=== PATIENT | male | born 1940 ===

== ENCOUNTER → 2019-11-02 | Outpatient (CLI) | payer MEDICARE ==
--- NOTE | 2019-11-02 14:45 | XR ---
EXAMINATION TYPE: XR nasal bone DATE OF EXAM: 11/02/2019 COMPARISON: None HISTORY: Pain TECHNIQUE: Three-view nasal bones FINDINGS: A nondisplaced fracture of the distal nasal bone may be present. No additional areas suspic ious for fracture is evident. Paranasal sinuses appear clear. Right septal deviation is noted. IMPRESSION: 1. Nondisplaced distal nasal bone fracture
== END | disposition home or self-care (01) ==
LOC: RADXRMAIN 13:26
PROVIDERS: ATTEND Family Medicine
DX: S02.2XXA Fracture of nasal bones, initial encounter for closed fracture (principal)
CPT/HCPCS: 70160

== ENCOUNTER → 2020-06-20 | Outpatient (CLI) | payer MEDICARE ==
--- NOTE | 2020-06-20 11:08 | CT ---
EXAMINATION TYPE: CT brain wo con DATE OF EXAM: 06/20/2020 COMPARISON: None HISTORY: Head pain right side CT DLP: 1189 mGycm Automated exposure control for dose reduction was used. FINDINGS: There is mild to moderate generalized degenerative change of the greater frontal lobe component. Low- attenuation in the white matter is nonspecific. There is mild prominence of the right ICA. Prominent cisterna magna is seen. No midline shift or mass effect. Craniocervical junction maintained. Partially empty sella turcica noted. Calvarium intact. IMPRESSION: Degenerative and nonspecific white matter changes most typical of remote white matter ischemia. Howev er, there is prominence of the right ICA cavernous segment recommend MRI MRA to include the [place] to rule out small aneurysm
== END | disposition home or self-care (01) ==
LOC: RADCTMAIN 10:23
PROVIDERS: ATTEND Family Medicine
DX: R90.82 White matter disease, unspecified (principal); I67.82 Cerebral ischemia
CPT/HCPCS: 70450

== ENCOUNTER → 2020-07-04 | Outpatient (CLI) | payer MEDICARE ==
--- NOTE | 2020-07-04 14:21 | MR ---
EXAMINATION TYPE: MR angio head wo con DATE OF EXAM: 07/04/2020 COMPARISON: CT brain June 20, 2020 HISTORY: Abnormal CT, Pain in head TECHNIQUE: Time of flight images focusing on the [place] were performed without contrast.. 2-D and 3-D postprocessing imaging is performed. FINDINGS: Codominant vertebrobasilar system. Vertebral arteries are patent to basilar junction. Hypop lastic bilateral posterior communicating arteries. No significant focal stenosis or aneurysmal change is identified in the posterior circulation. Images of the anterior circulation show small caliber but patent anterior communicating artery image 106. No significant focal stenosis or aneurysmal change identified, suboptimal evaluation of entire a nterior cerebral artery extending outside field of view. Distal internal carotid arteries show modera te atherosclerotic change bilaterally and some tortuous course, slightly asymmetric 5.1 mm aneurysmal prominence image 68 believed to correspond to area of of concern on recent CT on axial image 8. The internal carotid artery measures 4.5 mm in diameter just proximal to this image 64 for reference and 3.0 cm in diameter just distal to this image 74. 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
== END | disposition home or self-care (01) ==
LOC: RADMRIMAIN 13:20
PROVIDERS: ATTEND Family Medicine
DX: I72.0 Aneurysm of carotid artery (principal)
CPT/HCPCS: 70544

== ENCOUNTER 2023-04-21 20:30 | Inpatient (IN) | payer MEDICARE ==
--- NOTE | 2023-04-21 20:53 | ED ---
Allergic Reaction HPI - General Stated complaint: Allergic Reaction Time Seen by Provider: 04/21/23 20:39 Source: RN notes reviewed, old records reviewed, Caregiver Mode of arrival: EMS Limitations: no limitations - History of Present Illness Initial Comments: This is a 83 year-old male to the emergency department for evaluation today. She presents today for evaluation of fever weakness not feeling well. Feels like his heart is racing and like he may pass out. No cough congestion shortness of breath nausea vomiting or diarrhea patient's found of fever and tachycardia here in the emergency department. Persistent weakness and presents with likely does help provide history. Patient's been acting weak and not himself of the course of the day and he himself has no complaints aside from this MD Complaint: allergic reaction -: days(s) Symptoms: rash, facial swelling Severity: mild Treatment Prior to Arrival: benadryl Previous Allergy History: none - Related Data Home Medications Medication Instructions Recorded Confirmed Atorvastatin [Lipitor] 20 mg PO HS 04/21/23 04/21/23 Losartan Potassium 50 mg PO HS 04/21/23 04/21/23 Lutein 20 mg PO HS 04/21/23 04/21/23 Previous Rx's Medication Instructions Recorded cefUROXime axetiL [Ceftin] 500 mg PO BID 7 Days #14 tab 04/24/23 Allergies Allergy/AdvReac Type Severity Reaction Status Date / Time No Known Allergies Allergy Verified 04/21/23 22:53 Review of Systems ROS Statement: Those systems with pertinent positive or pertinent negative responses have been documented in the HPI. ROS Other: All systems not noted in ROS Statement are negative. Past Medical History Past Medical History: No Reported History History of Any Multi-Drug Resistant Organisms: None Reported Past Surgical History: No Surgical Hx Reported Additional Past Surgical History / Comment(s): colonoscopy Past Anesthesia/Blood Transfusion Reactions: No Reported Reaction Past Psychological History: No Psychological Hx Reported Past Alcohol Use History: Occasional Past Drug Use History: None Reported - Past Family History Father Family Medical History: Cancer Additional Family Medical History / Comment(s): melanoma General Exam General appearance: alert, in no apparent distress, anxious Head exam: Present: atraumatic, normocephalic, normal inspection Eye exam: Present: normal appearance, PERRL, EOMI. Absent: scleral icterus, conjunctival injection, periorbital swelling ENT exam: Present: normal exam, mucous membranes moist Neck exam: Present: normal inspection. Absent: tenderness, meningismus, lymphadenopathy Respiratory exam: Present: normal lung sounds bilaterally. Absent: respiratory distress, wheezes, rales, rhonchi, stridor Cardiovascular Exam: Present: regular rate, normal rhythm, normal heart sounds. Absent: systolic murmur, diastolic murmur, rubs, gallop, clicks GI/Abdominal exam: Present: soft, normal bowel sounds. Absent: distended, tenderness, guarding, rebound, rigid Extremities exam: Present: normal inspection, full ROM, normal capillary refill. Absent: tenderness, pedal edema, joint swelling, calf tenderness Back exam: Present: normal inspection Neurological exam: Present: alert, oriented X3, CN II-XII intact Psychiatric exam: Present: normal affect, normal mood Skin exam: Present: warm, dry, intact, normal color. Absent: rash Course Vital Signs 04/21/23 04/21/23 04/21/23 20:46 20:56 22:54 Temperature 101.5 F H 100.2 F H Pulse Rate 132 H 116 H Pulse Rate [ Left Pulse Oximetery] Respiratory 18 24 18 Rate Blood Pressure 144/71 117/77 Blood Pressure [Left Arm Supine] O2 Sat by Pulse 89 L 97 Oximetry 04/21/23 04/22/23 04/22/23 23:44 00:46 05:13 Temperature 98.2 F 101.2 F H 98.8 F Pulse Rate 75 Pulse Rate [ Left Pulse Oximetery] Respiratory 18 Rate Blood Pressure 90/47 Blood Pressure [Left Arm Supine] O2 Sat by Pulse 95 Oximetry 04/22/23 04/22/23 04/22/23 06:37 07:05 07:57 Temperature 98.1 F Pulse Rate 77 75 84 Pulse Rate [ Left Pulse Oximetery] Respiratory 18 16 16 Rate Blood Pressure 86/59 93/54 119/69 Blood Pressure [Left Arm Supine] O2 Sat by Pulse 96 93 L 95 Oximetry 04/22/23 04/22/23 04/22/23 11:36 14:00 15:27 Temperature 98.9 F 99.1 F Pulse Rate 82 Pulse Rate [ 85 85 Left Pulse Oximetery] Respiratory 18 17 17 Rate Blood Pressure 103/65 Blood Pressure 125/58 [Left Arm Supine] O2 Sat by Pulse 90 L 95 Oximetry 1204/22/23 04/23/23 20:00 23:02 01:22 Temperature 100.6 F H 99.9 F H Pulse Rate Pulse Rate [ 88 93 93 Left Pulse Oximetery] Respiratory 18 18 18 Rate Blood Pressure Blood Pressure 132/69 112/64 [Left Arm Supine] O2 Sat by Pulse 92 L 92 L Oximetry 04/23/23 04/23/23 04/23/23 04:00 04:05 08:00 Temperature 99.1 F Pulse Rate Pulse Rate [ 90 83 Left Pulse Oximetery] Respiratory 18 18 18 Rate Blood Pressure Blood Pressure 109/54 133/65 [Left Arm Supine] O2 Sat by Pulse 88 L 93 L 93 L Oximetry 04/23/23 04/23/23 04/23/23 12:00 14:00 16:00 Temperature Pulse Rate Pulse Rate [ 80 80 79 Left Pulse Oximetery] Respiratory 18 Rate Blood Pressure Blood Pressure 132/67 [Left Arm Supine] O2 Sat by Pulse 93 L 95 Oximetry - Reevaluation(s) Reevaluation #1: 04/21/23 23:27 Medical record is reviewed Reevaluation #2: 04/21/23 23:28 Patient symptoms are mildly improving with fever control Reevaluation #3: 04/21/23 23:28 Patient informed of results Reevaluation #4: 04/21/23 23:28 Was pt. sent in by a medical professional or institution ([facility], [employer], urgent care, hospital, or [facility]...) When possible be specific @ -no Did you speak to anyone other than the patient for history (EMS, parent, family, police, friend...)? What history was obtained from this source @ -no Did you review nursing and triage notes (agree or disagree)? Why? @ -agree Are old charts reviewed (outside hosp., previous admission, EMS record, old EKG, old radiological studies, urgent care reports/EKG's, [facility] records)? Report findings @ -yes Differential Diagnosis (chest pain, altered mental status, abdominal pain women, abdominal pain men, vaginal bleeding, weakness, fever, dyspnea, syncope, headache, dizziness, GI bleed, back pain, seizure, CVA, palpatations, mental health, musculoskeletal)? @ -prior EKG interpreted by me (3pts min.). @ -yes X-rays interpreted by me (1pt min.). @ -yes negative for acute disease CT interpreted by me (1pt min.). @ -no U/S interpreted by me (1pt. min.). @ -no What testing was considered but not performed or refused? (CT, X-rays, U/S, labs)? Why? @ -none What meds were considered but not given or refused? Why? @ -none Did you discuss the management of the patient with other professionals (pro fessionals i.e. , PA, SETTER MACHINE, lab, RT, psych nurse, social work lecturer, lumber loader, teacher, civil preparedness training officer, case monitor)? Give summary @ -no Was smoking cessation discussed for >3mins.? @ -no Was critical care preformed (if so, how long)? @ -no Were there social determinants of health that impacted care today? How? (Homelessness, low income, unemployed, alcoholism, drug addiction, transportation, low edu. Level, literacy, decrease access to med. care, longterm, rehab)? @ -none Was there de-escalation of care discussed even if they declined (Discuss DNR or withdrawal of care, Hospice)? DNR status @ -no What co-morbidities impacted this encounter? (DM, HTN, Smoking, COPD, CAD, Cancer, CVA, ARF, Chemo, Hep., AIDS, mental health diagnosis, sleep apnea, morbid obesity)? @ -none Was patient admitted / discharged? Hospital course, mention meds given and route, prescriptions, significant lab abnormalities, going to OR and other pertinent info. @ - 83 male to the emergency department for evaluation to the emergency department to the emergency department for evaluation of fever weakness not feeling well. Patient did originally think he was having ALLERGIC reaction secondary to ration his abdomen but is found to have significant fever with likely underlying infection and patient symptoms are from illness Patient will be admitted for IV antibiotics and hydration status Admitted Undiagnosed new problem with uncertain prognosis? @ -no Drug Therapy requiring intensive monitoring for toxicity (Heparin, Nitro, Insulin, Cardizem)? @ -no Were any procedures done? @ -no Diagnosis/symptom? @ -Febrile illness, fever, sepsis Acute, or Chronic, or Acute on Chronic? @ -Acute Uncomplicated (without systemic symptoms) or Complicated (systemic symptoms)? @ -Complicated Side effects of treatment? @ -no Exacerbation, Progression, or Severe Exacerbation? @ -exacerbation Poses a threat to life or bodily function? How? (Chest pain, [place], [place], pneumonia, PE, COPD, DKA, ARF, appy, cholecystitis, CVA, Diverticulitis, Homicidal, Suicidal, threat to staff... and all critical care pts) @ -yes with significant extreme of age and fever with illness Reevaluation #5: 04/21/23 23:28 Differential Fever: Pneumonia, viral URI, endocarditis, myocarditis, pericarditis, otitis, sinusitis, peritonsillar Abscess, retropharyngeal Abscess, epiglottitis, peritonitis, appendicitis, [place] cystitis, diverticulitis, hepatitis, colitis, UTI, PID, TOA, pyelonephritis, prostatitis, epididymitis, meningitis, encephalitis, pulmonary embolism, CVA, thyroid storm, pancreatitis, adrenal crisis, cavernous sinus thrombosis, this is not meant to be an all-inclusive list. - Consultations Consultation #1: Spoke with [facility] who agree to admit this patient Medical Decision Making - Medical Decision Making 83 male to the emergency department for evaluation to the emergency department to the emergency department for evaluation of fever weakness not feeling well. Patient did originally think he was having ALLERGIC reaction secondary to ration his abdomen but is found to have significant fever with likely underlying infection and patient symptoms are from illness Patient will be admitted for IV antibiotics and hydration status - Lab Data Result diagrams: 04/23/23 07:10 04/23/23 07:10 Lab Results 04/21/23 04/21/23 04/21/23 Range/Units 21:51 21:51 21:51 WBC 4.7 (3.8-10.6) k/uL RBC 4.21 L (4.30-5.90) m/uL Hgb 13.5 (13.0-17.5) gm/dL Hct 40.2 (39.0-53.0) % MCV 95.5 (80.0-100.0) fL MCH 32.1 (25.0-35.0) pg MCHC 33.6 (31.0-37.0) g/dL RDW 12.9 (11.5-15.5) % Plt Count 205 (150-450) k/uL MPV 7.4 Neutrophils % Not Reportable Neutrophils % (Manual) 87 % Band Neuts % (Manual) 7 % Lymphocytes % Not Reportable Lymphocytes % (Manual) 6 % Monocytes % Not Reportable Eosinophils % Not Reportable Basophils % Not Reportable Neutrophils # Not Reportable Neutrophils # (Manual) 4.40 (1.3-7.7) k/uL Lymphocytes # Not Reportable Lymphocytes # (Manual) 0.28 L (1.0-4.8) k/uL Monocytes # Not Reportable Eosinophils # Not Reportable Basophils # Not Reportable Nucleated RBCs 0 (0-0) /100 WBC Manual Slide Review Performed RBC Morphology Normal Sodium 140 (137-145) mmol/L Potassium 4.1 (3.5-5.1) mmol/L Chloride 106 (98-107) mmol/L Carbon Dioxide 18 L (22-30) mmol/L Anion Gap 16 mmol/L BUN 24 H (9-20) mg/dL Creatinine 1.06 (0.66-1.25) mg/dL Est GFR (CKD-EPI)AfAm 75 (>60 ml/min/1.73 sqM) Est GFR (CKD-EPI)NonAf 65 (>60 ml/min/1.73 sqM) Glucose 108 H (74-99) mg/dL Lactic Ac Sepsis Rflx Plasma Lactic Acid [place] 3.6 H* (0.7-2.0) mmol/L Calcium 9.1 (8.4-10.2) mg/dL Phosphorus 1.9 L (2.5-4.5) mg/dL Magnesium 1.6 (1.6-2.3) mg/dL Total Bilirubin 0.4 (0.2-1.3) mg/dL AST 35 (17-59) U/L ALT 21 (4-49) U/L Alkaline Phosphatase 90 (38-126) U/L Troponin I (0.000-0.034) ng/mL C-Reactive Protein <0.5 (<1.0) mg/dL Total Protein 6.8 (6.3-8.2) g/dL Albumin 3.9 (3.5-5.0) g/dL Urine Color Urine Appearance (Clear) Urine pH (5.0-8.0) Ur Specific [place] (1.001-1.035) Urine Protein (Negative) Urine Glucose (UA) (Negative) Urine Ketones (Negative) Urine Blood (Negative) Urine Nitrite (Negative) Urine Bilirubin (Negative) Urine Urobilinogen (<2.0) mg/dL Ur Leukocyte Esterase (Negative) Urine RBC (0-5) /hpf Urine WBC (0-5) /hpf Ur Squamous Epith Cells (0-4) /hpf Urine Mucus (None) /hpf Influenza Type A (PCR) (Not Detectd) Influenza Type B (PCR) (Not Detectd) RSV (PCR) (Not Detectd) SARS-CoV-2 (PCR) (Not Detectd) 04/21/23 04/21/23 04/21/23 Range/Units 21:51 21:51 22:30 WBC (3.8-10.6) k/uL RBC (4.30-5.90) m/uL Hgb (13.0-17.5) gm/dL Hct (39.0-53.0) % MCV (80.0-100.0) fL MCH (25.0-35.0) pg MCHC (31.0-37.0) g/dL RDW (11.5-15.5) % Plt Count (150-450) k/uL MPV Neutrophils % Neutrophils % (Manual) % Band Neuts % (Manual) % Lymphocytes % Lymphocytes % (Manual) % Monocytes % Eosinophils % Basophils % Neutrophils # Neutrophils # (Manual) (1.3-7.7) k/uL Lymphocytes # Lymphocytes # (Manual) (1.0-4.8) k/uL Monocytes # Eosinophils # Basophils # Nucleated RBCs (0-0) /100 WBC Manual Slide Review RBC Morphology Sodium (137-145) mmol/L Potassium (3.5-5.1) mmol/L Chloride (98-107) mmol/L Carbon Dioxide (22-30) mmol/L Anion Gap mmol/L BUN (9-20) mg/dL Creatinine (0.66-1.25) mg/dL Est GFR (CKD-EPI)AfAm (>60 ml/min/1.73 sqM) Est GFR (CKD-EPI)NonAf (>60 ml/min/1.73 sqM) Glucose (74-99) mg/dL Lactic Ac Sepsis Rflx Plasma Lactic Acid [place] (0.7-2.0) mmol/L Calcium (8.4-10.2) mg/dL Phosphorus (2.5-4.5) mg/dL Magnesium (1.6-2.3) mg/dL Total Bilirubin (0.2-1.3) mg/dL AST (17-59) U/L ALT (4-49) U/L Alkaline Phosphatase (38-126) U/L Troponin I 0.060 H* (0.000-0.034) ng/mL C-Reactive Protein (<1.0) mg/dL Total Protein (6.3-8.2) g/dL Albumin (3.5-5.0) g/dL Urine Color Yellow Urine Appearance Clear (Clear) Urine pH 6.0 (5.0-8.0) Ur Specific [place] 1.018 (1.001-1.035) Urine Protein Negative (Negative) Urine Glucose (UA) Negative (Negative) Urine Ketones Negative (Negative) Urine Blood Negative (Negative) Urine Nitrite Negative (Negative) Urine Bilirubin Negative (Negative) Urine Urobilinogen <2.0 (<2.0) mg/dL Ur Leukocyte Esterase Trace H (Negative) Urine RBC 2 (0-5) /hpf Urine WBC <1 (0-5) /hpf Ur Squamous Epith Cells 1 (0-4) /hpf Urine Mucus Rare H (None) /hpf Influenza Type A (PCR) Not Detected (Not Detectd) Influenza Type B (PCR) Not Detected (Not Detectd) RSV (PCR) Not Detected (Not Detectd) SARS-CoV-2 (PCR) Not Detected (Not Detectd) 04/21/23 Range/Units 22:48 WBC (3.8-10.6) k/uL RBC (4.30-5.90) m/uL Hgb (13.0-17.5) gm/dL Hct (39.0-53.0) % MCV (80.0-100.0) fL MCH (25.0-35.0) pg MCHC (31.0-37.0) g/dL RDW (11.5-15.5) % Plt Count (150-450) k/uL MPV Neutrophils % Neutrophils % (Manual) % Band Neuts % (Manual) % Lymphocytes % Lymphocytes % (Manual) % Monocytes % Eosinophils % Basophils % Neutrophils # Neutrophils # (Manual) (1.3-7.7) k/uL Lymphocytes # Lymphocytes # (Manual) (1.0-4.8) k/uL Monocytes # Eosinophils # Basophils # Nucleated RBCs (0-0) /100 WBC Manual Slide Review RBC Morphology Sodium (137-145) mmol/L Potassium (3.5-5.1) mmol/L Chloride (98-107) mmol/L Carbon Dioxide (22-30) mmol/L Anion Gap mmol/L BUN (9-20) mg/dL Creatinine (0.66-1.25) mg/dL Est GFR (CKD-EPI)AfAm (>60 ml/min/1.73 sqM) Est GFR (CKD-EPI)NonAf (>60 ml/min/1.73 sqM) Glucose (74-99) mg/dL Lactic Ac Sepsis Rflx Y Plasma Lactic Acid [place] (0.7-2.0) mmol/L Calcium (8.4-10.2) mg/dL Phosphorus (2.5-4.5) mg/dL Magnesium (1.6-2.3) mg/dL Total Bilirubin (0.2-1.3) mg/dL AST (17-59) U/L ALT (4-49) U/L Alkaline Phosphatase (38-126) U/L Troponin I (0.000-0.034) ng/mL C-Reactive Protein (<1.0) mg/dL Total Protein (6.3-8.2) g/dL Albumin (3.5-5.0) g/dL Urine Color Urine Appearance (Clear) Urine pH (5.0-8.0) Ur Specific [place] (1.001-1.035) Urine Protein (Negative) Urine Glucose (UA) (Negative) Urine Ketones (Negative) Urine Blood (Negative) Urine Nitrite (Negative) Urine Bilirubin (Negative) Urine Urobilinogen (<2.0) mg/dL Ur Leukocyte Esterase (Negative) Urine RBC (0-5) /hpf Urine WBC (0-5) /hpf Ur Squamous Epith Cells (0-4) /hpf Urine Mucus (None) /hpf Influenza Type A (PCR) (Not Detectd) Influenza Type B (PCR) (Not Detectd) RSV (PCR) (Not Detectd) SARS-CoV-2 (PCR) (Not Detectd) - EKG Data -: EKG Interpreted by Me (EKG is sinus tachycardia 112 MN 136 QRS 96 QTc. 388) - Radiology Data Radiology results: report reviewed (Chest x-rays negative for acute disease), image reviewed Disposition Clinical Impression: Fever Disposition: ADMITTED IP TO THIS HOSP Condition: Fair Is patient prescribed a controlled substance at d/c from ED?: No Time of Disposition: 23:20
[2023-04-21] MEDS ORDERED: IBUPROFEN IV 800 MG in SODIUM CHLORIDE 0.9% 250 ML IV ONE (21:36)
[2023-04-21] MEDS ORDERED: ACETAMINOPHEN IV (For NPO) 1,000 MG in EMPTY BAG 1 BAG IVPB STA (21:36)
[2023-04-21] MEDS ORDERED: SODIUM CHLORIDE 0.9% 1,000 ML IV STA (21:36)
[2023-04-21] MEDS ORDERED: SODIUM CHLORIDE 0.9% 500 ML 500 ML IV STA (21:36)
[2023-04-21] MEDS ORDERED: ONDANSETRON 4 MG/2 ML VIAL IVP STA (21:36)
[2023-04-21 22:21] LABS: HCT 40.2 % (39.0-53.0); HGB 13.5 gm/dL (13.0-17.5); MCH 32.1 pg (25.0-35.0); MCHC 33.6 g/dL (31.0-37.0); MCV 95.5 fL (80.0-100.0); Mean Platelet Volume 7.4; Platelet Count 205 k/uL (150-450); RBC 4.21 m/uL (4.30-5.90); RDW 12.9 % (11.5-15.5); WBC 4.7 k/uL (3.8-10.6)
[2023-04-21 22:36] LABS: ALT 21 U/L (4-49); AST 35 U/L (17-59); African American GFR (CKD) 75 (>60 ml/min/1.73 sqM); Albumin 3.9 g/dL (3.5-5.0); Alkaline Phosphatase 90 U/L (38-126); Anion Gap 16 mmol/L; Blood Urea Nitrogen 24 mg/dL (9-20); C Reactive Protein <0.5 mg/dL (<1.0); Calcium 9.1 mg/dL (8.4-10.2); Carbon Dioxide 18 mmol/L (22-30); Chloride 106 mmol/L (98-107); Glucose 108 mg/dL (74-99); Magnesium 1.6 mg/dL (1.6-2.3); Non-African American GFR(CKD) 65 (>60 ml/min/1.73 sqM); Phosphorus 1.9 mg/dL (2.5-4.5); Potassium 4.1 mmol/L (3.5-5.1); Sodium 140 mmol/L (137-145); Total Bilirubin 0.4 mg/dL (0.2-1.3); Total Protein 6.8 g/dL (6.3-8.2)
[2023-04-21 22:45] LABS: Appearance,Urine Clear (Clear); Bilirubin,Urine Negative (Negative); Blood,Urine Negative (Negative); Color,Urine Yellow; Glucose,Urine (UA) Negative (Negative); Ketones,Urine Negative (Negative); Leukocyte Esterase,Urine Trace (Negative); Mucus,Urine Rare /hpf; Nitrite,Urine Negative (Negative); Protein,Urine Negative (Negative); RBC,Urine 2 /hpf (0-5); Specific Gravity,Urine 1.018 (1.001-1.035); Squamous Epithelial Cell,Urine 1 /hpf (0-4); Urobilinogen,Urine <2.0 mg/dL (<2.0); WBC,Urine <1 /hpf (0-5)
[2023-04-21 23:04] LABS: Band Neutrophils % 7 %; Lymphocytes # (M) 0.28 k/uL (1.0-4.8); Neutrophils % (M) 87 %; Nucleated Red Blood Cells 0 /100 WBC (0-0); RBC Morphology Normal; Total Cells Counted 100
--- NOTE | 2023-04-21 23:23 | XR ---
EXAM: XR Chest, 1 View CLINICAL HISTORY: ITS.REASON XR Reason: ams TECHNIQUE: Frontal view of the chest. COMPARISON: No relevant prior studies available. FINDINGS: Lungs: Unremarkable. No consolidation. Pleural space: Trace left pleural effusion. No pneumothorax. Heart: Cardiomegaly. Mediastinum: Unremarkable. Normal mediastinal contour. Bones/joints: Unremarkable. No acute fracture. Vasculature: Calcified aorta. IMPRESSION: Trace left pleural effusion.
[2023-04-21] MEDS ORDERED: NALOXONE 0.4 MG/ML 1 ML VIAL IV PRN (23:25)
[2023-04-21] MEDS ORDERED: ONDANSETRON 4 MG/2 ML VIAL IVP PRN (23:25)
[2023-04-21] MEDS ORDERED: HYDROmorphone 1 MG/ML 1 ML SYRINGE IVP PRN (23:25)
[2023-04-21] MEDS ORDERED: ACETAMINOPHEN TAB 325 MG TAB PO PRN (23:25)
[2023-04-21] MEDS ORDERED: IBUPROFEN 400 MG TAB PO PRN (23:25)
[2023-04-21] MEDS ORDERED: AZITHROMYCIN 500 MG in SODIUM CHLORIDE 0.9% 250 ML IVPB STA (23:31)
[2023-04-22] MEDS: SODIUM CHLORIDE 0.9% 1,000 ML IV SCH ×3 (01:55→20:33)
--- NOTE | 2023-04-22 08:55 | P.HPIM ---
History of Present Illness This is a pleasant 83 years old male with no known past medical history. Presents because he was feeling hot with chills and he had had fever at home. He is mildly tachypneic but denies chest pain dyspnea or coughing. He vomited once in the morning but currently denies nausea or abdominal pain or diarrhea. No urinary complaints like urgency Patient denies smoking or illicit drugs but he drinks wine every night. Also patient self cath himself at home. But no urinary symptoms. Blood pressure was on the low side and this morning is better 119/69. He had fever in the emergency room 101.2. Labs looks unremarkable CBC, BMP, LFTs, urine analysis. Influenza A and type B, RSV, SARS (coronavirus) are and detected Troponin 0.06, slightly elevated Chest x-ray showing trace left pleural effusion EKG shows sinus tachycardia [address]-T changes and QTC 388. Review of Systems Review of systems CONSTITUTIONAL: No fever, no malaise, no fatigue. HEENT: No recent visual problems or hearing problems. Denied any sore throat. CARDIOVASCULAR: No orthopnea, PND, no palpitations, no syncope. PULMONARY: No shortness of breath, no cough, no hemoptysis. GASTROINTESTINAL: No diarrhea, no nausea, no vomiting, no abdominal pain. Normoactive bowel sounds. NEUROLOGICAL: No headaches, no weakness, no numbness. HEMATOLOGICAL: Denies any bleeding or petechiae. GENITOURINARY: Denies any burning micturition, frequency, or urgency. MUSCULOSKELETAL/RHEUMATOLOGICAL: Denies any joint pain, swelling, or any muscle pain. ENDOCRINE: Denies any polyuria or polydipsia. Past Medical History Past Medical History: No Reported History History of Any Multi-Drug Resistant Organisms: None Reported Past Surgical History: No Surgical Hx Reported Additional Past Surgical History / Comment(s): colonoscopy Past Anesthesia/Blood Transfusion Reactions: No Reported Reaction Past Psychological History: No Psychological Hx Reported Past Alcohol Use History: Occasional Past Drug Use History: None Reported - Past Family History Father Family Medical History: Cancer Additional Family Medical History / Comment(s): melanoma Medications and Allergies Home Medications Medication Instructions Recorded Confirmed Type Atorvastatin [Lipitor] 20 mg PO HS 04/21/23 04/21/23 History Losartan Potassium 50 mg PO HS 04/21/23 04/21/23 History Lutein 20 mg PO HS 04/21/23 04/21/23 History Allergies Allergy/AdvReac Type Severity Reaction Status Date / Time No Known Allergies Allergy Verified 04/21/23 22:53 Physical Exam Vitals: Vital Signs Temp Pulse Resp BP Pulse Ox 04/22/23 07:57 98.1 F 84 16 119/69 95 04/22/23 07:05 75 16 93/54 93 L 04/22/23 06:37 77 18 86/59 96 04/22/23 05:13 98.8 F 75 18 90/47 95 04/22/23 00:46 101.2 F H 04/21/23 23:44 98.2 F 04/21/23 22:54 100.2 F H 116 H 18 117/77 97 04/21/23 20:56 24 04/21/23 20:46 101.5 F H 132 H 18 144/71 89 L Intake and Output 04/21/23 04/22/23 04/22/23 22:59 06:59 14:59 Other: Weight 81.647 kg GENERAL: The patient is alert and oriented x3, not in any acute distress. Well developed, well nourished. HEENT: Pupils are round and equally reacting to light. EOMI. No scleral icterus. No conjunctival pallor. Normocephalic, atraumatic. No pharyngeal erythema. No thyromegaly. CARDIOVASCULAR: S1 and S2 present. No murmurs, rubs, or gallops. PULMONARY: Chest is clear to auscultation, no wheezing , no crackles. ABDOMEN: Soft, nontender, nondistended, normoactive bowel sounds. No palpable organomegaly. MUSCULOSKELETAL: No joint swelling or deformity. EXTREMITIES: No cyanosis, clubbing, or pedal edema. NEUROLOGICAL: Gross neurological examination did not reveal any focal deficits. SKIN: No rashes. no petechiae. Results CBC & Chem 7: 04/21/23 21:51 04/21/23 21:51 Labs: Abnormal Lab Results - Last 24 Hours (Table) 04/21/23 04/21/23 04/21/23 Range/Units 21:51 21:51 21:51 RBC 4.21 L (4.30-5.90) m/uL Lymphocytes # (Manual) 0.28 L (1.0-4.8) k/uL Carbon Dioxide 18 L (22-30) mmol/L BUN 24 H (9-20) mg/dL Glucose 108 H (74-99) mg/dL Plasma Lactic Acid Chadwick 3.6 H* (0.7-2.0) mmol/L Phosphorus 1.9 L (2.5-4.5) mg/dL Troponin I (0.000-0.034) ng/mL Ur Leukocyte Esterase (Negative) Urine Mucus (None) /hpf 04/21/23 04/21/23 Range/Units 21:51 22:30 RBC (4.30-5.90) m/uL Lymphocytes # (Manual) (1.0-4.8) k/uL Carbon Dioxide (22-30) mmol/L BUN (9-20) mg/dL Glucose (74-99) mg/dL Plasma Lactic Acid Chadwick (0.7-2.0) mmol/L Phosphorus (2.5-4.5) mg/dL Troponin I 0.060 H* (0.000-0.034) ng/mL Ur Leukocyte Esterase Trace H (Negative) Urine Mucus Rare H (None) /hpf Assessment and Plan Assessment: Fever of unknown origin, pneumonia suspected Generalized weakness secondary to the above Sepsis with hypotension secondary to above, with fever and tachypnea present on admission Alcohol use disorder and dependence Mildly elevated troponin Plan: Continue with antibiotics Zithromax and ceftriaxone Follow-up culture results Check liver ultrasound Infectious disease consult Continue with normal saline hold losartan Check echocardiogram Cardiology consult Labs and medication were reviewed.. Continue same treatment. Continue with symptomatic treatment. Resume home medication. Monitor labs and vitals. DVT and GI prophylaxis. Further recommendations as per clinical course of the patient DVT prophylaxis: Subcutaneous heparin GI Prophylaxis: Pepcid PT/OT: Pending Prognosis is guarded
[2023-04-22] MEDS ORDERED: FAMOTIDINE 20 MG/2 ML VIAL IV SCH (09:00)
--- NOTE | 2023-04-22 09:04 | CONS ---
CONSULTATION CHIEF COMPLAINT: Fever with chills. HISTORY OF PRESENT ILLNESS: This is an 83-year-old gentleman with history of hypertension, dyslipidemia, who presented to hospital complaining of fever, weakness, and not feeling well that has been going on for the last several days. Had palpitations and felt that he was almost going to pass out. He did not have chest pain, difficulty in breathing, leg edema, PND, or orthopnea. There was no history of focal neurological deficits. EKG showed sinus tachycardia with nonspecific ST-T wave changes. Lab showed that the hemoglobin was 13.5, white cell count was normal. Potassium was 4.1 and creatinine was 1. Troponin was elevated at 0.06. Cardiology has been consulted for the same. The patient did not have any cardiac symptoms. PAST MEDICAL HISTORY: Significant for hypertension, dyslipidemia. MEDICATIONS: Medications at home included losartan 50 mg daily and atorvastatin 20 mg daily. ALLERGIES: There are no known drug allergies. FAMILY HISTORY: Negative for premature coronary artery disease. SOCIAL HISTORY: Negative for current smoking, EtOH abuse, or drug abuse. REVIEW OF SYSTEMS: HEENT: Unremarkable. CARDIAC: As described above. RESPIRATORY: As described above. GI: Negative. GENITOURINARY: Negative. ALLERGY/IMMUNOLOGY: Negative. SKIN: Negative. MUSCULOSKELETAL: Significant for arthritis. PSYCHOSOCIAL: Negative. DERM: Negative. CONSTITUTIONAL: Negative. ONCOLOGICAL: Negative. TRANSLATOR AND INTERPRETER: Negative. Rest of the system review is not relevant. PHYSICAL EXAMINATION: GENERAL: The patient is comfortable at rest. VITAL SIGNS: Afebrile. Vital signs are stable. CHEST: Reveals good air entry bilaterally. HEART: Reveals first and second heart sounds. No gallop. Has a 4/6 systolic murmur at the apex and also at the right parasternal border. ABDOMEN: Soft. EXTREMITIES: Did not reveal any edema. Peripheral pulses are felt. ASSESSMENT AND PLAN: 1. Elevated troponin. 2. Fever of probably related to pneumonia. 3. New onset heart murmur. PLAN: I will obtain a 2D echo for further evaluation of the heart murmur, which could either be due to aortic stenosis or mitral regurgitation. The patient had blood cultures done already and will follow the results. His elevated troponin could be related to the febrile illness. I will obtain 2 more sets of troponins. Once his fever issues resolve, he will need evaluation for CAD. We will do this as outpatient. MMODL / IJN: [id number] /
[2023-04-22] MEDS: HEPARIN SODIUM,PORCINE 5,000 UNIT/ML 1 ML VIAL SQ SCH ×2 (09:05→20:32)
[2023-04-22] MEDS ORDERED: QUEtiapine 25 MG TAB PO PRN (09:17)
--- NOTE | 2023-04-22 10:51 | US ---
EXAMINATION TYPE: US liver DATE OF EXAM: 04/22/2023 COMPARISON: NONE CLINICAL INDICATION: Male, 83 years old with history of fever; fever, no abd pain TECHNIQUE: Multiple sonographic images of the right upper quadrant are obtained. FINDINGS: EXAM MEASUREMENTS: Liver Length: 15.4 cm Gallbladder Wall: 0.2 cm CBD: 0.3 cm Right Kidney: 10.2 x 4.9 x 5.4 cm Pancreas: portion seen appear wnl Liver: difficult to penetrate , no suspicious masses or cystic structures or dilated ducts. Gallbladder: wnl Evidence for sonographic Porras's sign: no CBD: wnl Right Kidney: wnl IMPRESSION: No evidence for acute process.
[2023-04-22 11:11] LABS: ALT 31 U/L (4-49); AST 60 U/L (17-59); African American GFR (CKD) 56 (>60 ml/min/1.73 sqM); Albumin 2.8 g/dL (3.5-5.0); Alkaline Phosphatase 60 U/L (38-126); Anion Gap 11 mmol/L; Blood Urea Nitrogen 28 mg/dL (9-20); Carbon Dioxide 18 mmol/L (22-30); Chloride 107 mmol/L (98-107); Glucose 119 mg/dL (74-99); Magnesium 1.5 mg/dL (1.6-2.3); Non-African American GFR(CKD) 48 (>60 ml/min/1.73 sqM); Phosphorus 3.8 mg/dL (2.5-4.5); Potassium 4.5 mmol/L (3.5-5.1); Sodium 136 mmol/L (137-145); Total Bilirubin 0.7 mg/dL (0.2-1.3); Total Protein 5.5 g/dL (6.3-8.2)
[2023-04-22 11:19] LABS: Basophils % (A) 0 %; Eosinophils % (A) 0 %; HCT 34.4 % (39.0-53.0); HGB 11.2 gm/dL (13.0-17.5); Lymphocytes # (A) 0.2 k/uL (1.0-4.8); Lymphocytes % (A) 2 %; MCH 32.1 pg (25.0-35.0); MCHC 32.5 g/dL (31.0-37.0); Mean Platelet Volume 8.2; Monocytes # (A) 0.2 k/uL (0-1.0); Monocytes % (A) 2 %; Neutrophils # (A) 10.9 k/uL (1.3-7.7); Neutrophils % (A) 95 %; Platelet Count 144 k/uL (150-450); RBC 3.47 m/uL (4.30-5.90); RDW 13.4 % (11.5-15.5); WBC 11.5 k/uL (3.8-10.6)
[2023-04-22 14:33] LABS: RBC Morphology Normal
[2023-04-22] MEDS: ATORVASTATIN 20 MG TAB PO SCH (20:32)
--- NOTE | 2023-04-22 22:30 | P.CONS ---
History of Present Illness - Reason for Consult Consult date: 04/22/23 Fever Requesting physician: Anatoliy E Sheet - Chief Complaint Rigors and chills along with weakness x 1 day - History of Present Illness Patient is a 83-year-old male with a past medical history significant for urine outflow obstruction in this patient who self catheterize himself about 3 times a day patient presenting to the ER last night complaining of rigors and chills feeling weak patient symptoms started last night, patient mention he was just sitting when he noticed to have several right wrist and chills that he sit in front of a heater but no could not get warm patient denies having any headache or URI symptoms patient denies having any chest pain occasional cough no sputum production patient denies having any nausea no vomiting no abdominal pain no diarrhea patient mention no any change noticed in the urine is slightly darker however the patient has not noticed any suprapubic or flank discomfort and no diarrhea with the symptoms the patient was evaluated on presentation to the hospital he did have a fever of 101.5 F patient was not tachycardic hypotensive noticed to be mildly hypoxic with O2 sat 79% currently on 2 L nasal cannula oxygen patient did have white count of 11.5 with a left shift BUN/creatinine is mildly elevated AST of 60 troponin elevated influenza RSV and COVID testing was negative urine shows trace leukocyte Estrace however rest of the UA was negative patient did have a chest x-ray trace left effusion liver ultrasound no evidence for acute process patient was started on Zithromax and Rocephin infectious disease was consulted for further management of antibiotic therapy Review of Systems Positive point and negatives has been mentioned in the HPI, complete review of systems was performed and all other systems are negative Past Medical History Past Medical History: No Reported History History of Any Multi-Drug Resistant Organisms: None Reported Past Surgical History: No Surgical Hx Reported Additional Past Surgical History / Comment(s): colonoscopy Past Anesthesia/Blood Transfusion Reactions: No Reported Reaction Past Psychological History: No Psychological Hx Reported Past Alcohol Use History: Occasional Past Drug Use History: None Reported - Past Family History Father Family Medical History: Cancer Additional Family Medical History / Comment(s): melanoma Medications and Allergies Home Medications Medication Instructions Recorded Confirmed Type Atorvastatin [Lipitor] 20 mg PO HS 04/21/23 04/21/23 History Losartan Potassium 50 mg PO HS 04/21/23 04/21/23 History Lutein 20 mg PO HS 04/21/23 04/21/23 History cefUROXime axetiL [Ceftin] 500 mg PO BID 7 Days #14 tab 04/24/23 Rx Allergies Allergy/AdvReac Type Severity Reaction Status Date / Time No Known Allergies Allergy Verified 04/21/23 22:53 Physical Exam Vitals: Vital Signs Temp Pulse Resp BP Pulse Ox 04/22/23 11:36 98.9 F 82 18 103/65 90 L 04/22/23 07:57 98.1 F 84 16 119/69 95 04/22/23 07:05 75 16 93/54 93 L 04/22/23 06:37 77 18 86/59 96 04/22/23 05:13 98.8 F 75 18 90/47 95 04/22/23 00:46 101.2 F H 04/21/23 23:44 98.2 F 04/21/23 22:54 100.2 F H 116 H 18 117/77 97 04/21/23 20:56 24 04/21/23 20:46 101.5 F H 132 H 18 144/71 89 L Intake and Output 04/21/23 04/22/23 04/22/23 22:59 06:59 14:59 Other: Weight 81.647 kg GENERAL DESCRIPTION: Elderly male lying in bed, no distress. No tachypnea or accessory muscle of respiration use. HEENT: Shows Pallor , no scleral icterus. Oral mucous membrane is dry. No pharyngeal erythema or thrush NECK: Trachea central, no thyromegaly. LUNGS: Unlabored breathing. Decreased breath sound at the base HEART: S1, S2, regular rate and rhythm. No loud murmur ABDOMEN: Soft, no tenderness , guarding or rigidity, no organomegaly EXTREMITIES: No edema of feet. SKIN: No rash, no masses palpable. NEUROLOGICAL: The patient is awake, alert, oriented x3, mood and affect normal. Results CBC & Chem 7: 04/23/23 07:10 04/23/23 07:10 Labs: Abnormal Lab Results - Last 24 Hours (Table) 04/21/23 04/21/23 04/21/23 Range/Units 21:51 21:51 21:51 WBC (3.8-10.6) k/uL RBC 4.21 L (4.30-5.90) m/uL Hgb (13.0-17.5) gm/dL Hct (39.0-53.0) % Plt Count (150-450) k/uL Lymphocytes # (Manual) 0.28 L (1.0-4.8) k/uL Sodium (137-145) mmol/L Carbon Dioxide 18 L (22-30) mmol/L BUN 24 H (9-20) mg/dL Creatinine (0.66-1.25) mg/dL Glucose 108 H (74-99) mg/dL Plasma Lactic Acid Chadwick 3.6 H* (0.7-2.0) mmol/L Calcium (8.4-10.2) mg/dL Phosphorus 1.9 L (2.5-4.5) mg/dL Magnesium (1.6-2.3) mg/dL AST (17-59) U/L Troponin I (0.000-0.034) ng/mL Total Protein (6.3-8.2) g/dL Albumin (3.5-5.0) g/dL Ur Leukocyte Esterase (Negative) Urine Mucus (None) /hpf 04/21/23 04/21/23 04/22/23 Range/Units 21:51 22:30 10:06 WBC 11.5 H (3.8-10.6) k/uL RBC 3.47 L (4.30-5.90) m/uL Hgb 11.2 L (13.0-17.5) gm/dL Hct 34.4 L (39.0-53.0) % Plt Count 144 L (150-450) k/uL Lymphocytes # (Manual) (1.0-4.8) k/uL Sodium (137-145) mmol/L Carbon Dioxide (22-30) mmol/L BUN (9-20) mg/dL Creatinine (0.66-1.25) mg/dL Glucose (74-99) mg/dL Plasma Lactic Acid Chadwick (0.7-2.0) mmol/L Calcium (8.4-10.2) mg/dL Phosphorus (2.5-4.5) mg/dL Magnesium (1.6-2.3) mg/dL AST (17-59) U/L Troponin I 0.060 H* (0.000-0.034) ng/mL Total Protein (6.3-8.2) g/dL Albumin (3.5-5.0) g/dL Ur Leukocyte Esterase Trace H (Negative) Urine Mucus Rare H (None) /hpf 04/22/23 04/22/23 Range/Units 10:06 10:06 WBC (3.8-10.6) k/uL RBC (4.30-5.90) m/uL Hgb (13.0-17.5) gm/dL Hct (39.0-53.0) % Plt Count (150-450) k/uL Lymphocytes # (Manual) (1.0-4.8) k/uL Sodium 136 L (137-145) mmol/L Carbon Dioxide 18 L (22-30) mmol/L BUN 28 H (9-20) mg/dL Creatinine 1.35 H (0.66-1.25) mg/dL Glucose 119 H (74-99) mg/dL Plasma Lactic Acid Chadwick (0.7-2.0) mmol/L Calcium 8.0 L (8.4-10.2) mg/dL Phosphorus (2.5-4.5) mg/dL Magnesium 1.5 L (1.6-2.3) mg/dL AST 60 H (17-59) U/L Troponin I 0.339 H* (0.000-0.034) ng/mL Total Protein 5.5 L (6.3-8.2) g/dL Albumin 2.8 L (3.5-5.0) g/dL Ur Leukocyte Esterase (Negative) Urine Mucus (None) /hpf Assessment and Plan (1) Pneumonia Status: Acute Code(s): J18.9 - PNEUMONIA, UNSPECIFIED ORGANISM SNOMED Code(s): 141778329 (2) Fever Status: Acute Code(s): R50.9 - FEVER, UNSPECIFIED SNOMED Code(s): 689437551 Plan: 1-patient was in the hospital with sepsis in this patient who did have a fever elevated white count source possible pneumonia versus UTI as the patient did have risk factors for UTI because of his bladder outflow obstruction and need for self-catheterization 2-we will try to obtain CRP procalcitonin sputum for Gram stain culture if possible and check urine for Legionella antigen 3-patient to continue with empiric Rocephin and Zithromax while waiting for the workup to be completed We will follow on clinical condition and cultures to further adjust medication if needed Thank you for this consultation we will follow the patient along with you Dictation was produced using [employer] dictation software. please excuse any grammatical, word or spelling errors. Time with Patient: Greater than 30
[2023-04-23] MEDS: AZITHROMYCIN 500 MG in SODIUM CHLORIDE 0.9% 250 ML IVPB SCH (01:51)
[2023-04-23 07:42] LABS: HCT 32.5 % (39.0-53.0); MCH 32.7 pg (25.0-35.0); MCV 96.2 fL (80.0-100.0); Platelet Count 135 k/uL (150-450); RBC 3.38 m/uL (4.30-5.90); RDW 13.4 % (11.5-15.5)
[2023-04-23 08:33] LABS: African American GFR (CKD) 68 (>60 ml/min/1.73 sqM); Anion Gap 7 mmol/L; Blood Urea Nitrogen 20 mg/dL (9-20); Calcium 8.2 mg/dL (8.4-10.2); Carbon Dioxide 21 mmol/L (22-30); Chloride 105 mmol/L (98-107); Glucose 97 mg/dL (74-99); Magnesium 1.6 mg/dL (1.6-2.3); Non-African American GFR(CKD) 59 (>60 ml/min/1.73 sqM); Potassium 4.1 mmol/L (3.5-5.1); Sodium 133 mmol/L (137-145)
[2023-04-23 08:49] LABS: C Reactive Protein 13.2 mg/dL (<1.0)
--- NOTE | 2023-04-23 09:13 | P.DS ---
Providers Date of admission: 04/21/23 23:25 Attending physician: Michelle Day Consults: 04/22/23 07:26 Consult Physician Routine Consulting Provider: Meredith Owusu Consult Reason/Comments: high troponin Do you want consulting provider notified?: Yes Consult Physician Urgent Consulting Provider: Raymond Harmon Consult Reason/Comments: fever Do you want consulting provider notified?: Yes Primary care physician: Parish Warren Hospital Course: Please note patient was not discharged but he left AMA Diagnoses: Fever of unknown origin, pneumonia suspected. Cannot rule out UTI or endocarditis or other signs of infections over Generalized weakness secondary to the above Sepsis with hypotension secondary to above, with fever and tachypnea present on admission Alcohol use disorder and dependence Mildly elevated troponin, rule out cardiac causes Non-adherence to medical management Hospital course: This is a pleasant 83 years old male with no known past medical history. Presents because he was feeling hot with chills and he had had fever at home. He is mildly tachypneic but denies chest pain dyspnea or coughing. He vomited once in the morning but currently denies nausea or abdominal pain or diarrhea. No urinary complaints like urgency Patient denies smoking or illicit drugs but he drinks wine every night. Also patient self cath himself at home. But no urinary symptoms. Blood pressure was on the low side and this morning is better 119/69. He had fever in the emergency room 101.2. Labs looks unremarkable CBC, BMP, LFTs, urine analysis. Influenza A and type B, RSV, SARS (coronavirus) are and detected Troponin 0.06, slightly elevated Chest x-ray showing trace left pleural effusion EKG shows sinus tachycardia [address]-T changes and QTC 388. Patient was admitted for cardiac workup and sepsis workup. Metal Burrer evaluated the patient and recommended continue workup as an outpatient once fever or visual has been salt This morning I saw the patient in the emergency room 25, was lying in bed comfortable and relaxed. Fully awake and oriented. Denies any specific symptoms. No headache dizziness. No tachypnea, dyspnea, cough and no chest pain. He denies any specific GI or urinary symptoms to me. Patient's wanting to leave AGAINST MEDICAL ADVICE. I discussed patient's medical problems with him including but not limited to his heart disease, heart attack, his fever and possible infection which could be his lung or his heart somewhere else. Patient verbalized understanding and he could tell me the risks of leaving AMA for example worsening sepsis, heart damage and/or . However patient was adamant to leave AMA. When asking wasn't the reason for leaving MA he said he does not like the patient or within the hospital and he does not think he needs to stay in the hospital. I told the patient there is anything I can do or say that prevent him from leaving AMA and he said "no" Based upon my evaluation patient has capacity to make medical decision. he was informed that if he changes his mind or if he develops signs symptoms like but not limited to worsening chest pain dyspnea or fever to call 911 on come to emergency room. Patient also was instructed to go see his PCP right away and he agrees. Patient verbalized understanding and acceptance to all above. Patient advised not to leave alone or drive and he told me he is going to call the family to pick him up. These were discussed with the bedside nurse Kerry, who is going to confirm family will pick him up Physical exam Gen: patient is a AAOx3, no distress CVS: S1-S2, RRR, no murmur Lungs: B/L CTA, no wheezing Abdomen: soft, no distention, no tenderness, positive bowel sounds Extremity: no leg edema or induration Time spent more than 35 minutes Patient Condition at Discharge: Fair Plan - Discharge Summary Discharge Rx Participant: Yes New Discharge Prescriptions: No Action Lutein 20 mg PO HS Losartan Potassium 50 mg PO HS Atorvastatin [Lipitor] 20 mg PO HS Discharge Medication List Atorvastatin [Lipitor] 20 mg PO HS 04/21/23 [History] Losartan Potassium 50 mg PO HS 04/21/23 [History] Lutein 20 mg PO HS 04/21/23 [History] Follow up Appointment(s)/Referral(s): Parish Warren DO [Primary Care Provider] - 1-2 days
--- NOTE | 2023-04-23 09:26 | PN ---
PROGRESS NOTE HISTORY OF PRESENT ILLNESS: This is an 83-year-old gentleman, who was admitted to hospital yesterday with a febrile illness and had mild troponin elevation, due to which Cardiology had been consulted. The patient is feeling much better this morning. He does not have any fever. Does not have any headache, nausea, vomiting, and he is feeling much better compared to where we were. The patient had been evaluated by an infectious disease specialist and is currently on antibiotics. Blood cultures have been done, and results are pending at this time because of the heart murmur that I heard. I ordered an echocardiogram, which a day later has not yet been done. PHYSICAL EXAMINATION: VITAL SIGNS: Afebrile, heart rate is 90 beats per minute, blood pressure is 109/54, respiratory rate is 18, O2 saturation is 93% on 2 L. NECK: There is no jugular venous distention. CHEST: Reveals good air entry bilaterally. HEART: Reveals first and second heart sounds and a systolic murmur at the apex. ABDOMEN: Soft. EXTREMITIES: Did not reveal any edema. Peripheral pulses are felt. LABORATORY DATA: Labs show that the troponin is 0.3, 0.3, and 0.3. Creatinine is 1.35. Hemoglobin is 11. ASSESSMENT AND PLAN: 1. Febrile illness and sepsis workup in progress. ID on the case. 2. Elevated troponin of unclear clinical significance could be related to renal insufficiency. The patient's clinical presentation is not consistent with an acute coronary syndrome. 3. Heart murmur. I am going to obtain a 2D echo on him. MMODL / IJN: [id number] /
[2023-04-23] MEDS: HEPARIN SODIUM,PORCINE 5,000 UNIT/ML 1 ML VIAL SQ SCH ×2 (09:49→21:02)
[2023-04-23] MEDS: FAMOTIDINE 20 MG/2 ML VIAL IV SCH (09:52)
[2023-04-23] MEDS: SODIUM CHLORIDE 0.9% 1,000 ML IV SCH (09:52)
--- NOTE | 2023-04-23 14:59 | CA ---
Transthoracic Echo Report Name: Td Hudson Age: 83 Gender: M : 1940 Exam Date: 04/23/2023 10:05 Exam Location: [facility] Ht (in): 72 Wt (lb): 180 Ordering Physician: Anatoliy Benítez MD Attending/Referring Phys: [id number], Jackelin Hydro Mechanic Ernesto Patel Procedure CPT: Indications: Rule out heart disease Cardiac Hx: Technical Quality: Fair Contrast 1: Total Dose (mL): Contrast 2: Total Dose (mL): MEASUREMENTS (Male / Female) Normal Values 2D ECHO LV Diastolic Diameter PLAX 4.9 cm 4.2 - 5.9 / 3.9 - 5.3 cm LV Systolic Diameter PLAX 3.0 cm IVS Diastolic Thickness 0.9 cm 0.6 - 1.0 / 0.6 - 0.9 cm LVPW Diastolic Thickness 1.1 cm 0.6 - 1.0 / 0.6 - 0.9 cm LV Relative Wall Thickness 0.4 RV Internal Dim ED PLAX 3.0 cm LVOT Diameter 2.1 cm Aortic Root Diameter 3.5 cm LA Systolic Diameter LX 2.8 cm 3.0 - 4.0 / 2.7 - 3.8 cm LV Diastolic Volume MOD BP 67.3 cm??? 67 - 155 / 56 - 104 cm??? LV Systolic Volume MOD BP 19.0 cm??? 22 - 58 / 19 - 49 cm??? LV Ejection Fraction MOD BP 71.8 % >= 55 % LV Cardiac Index MOD BP 1965.8 cm???/min???m??? LV Diastolic Volume MOD 4C 78.2 cm??? LV Systolic Volume MOD 4C 22.3 cm??? LV Ejection Fraction MOD 4C 71.4 % LV Cardiac Index MOD 4C 2271.2 cm???/min???m??? LV Diastolic Length 4C 6.9 cm LV Systolic Length 4C 6.2 cm LV Diastolic Volume MOD 2C 56.1 cm??? LV Systolic Volume MOD 2C 16.0 cm??? LV Ejection Fraction MOD 2C 71.4 % LV Cardiac Index MOD 2C 1630.4 cm???/min???m??? LV Diastolic Length 2C 6.7 cm LV Systolic Length 2C 6.1 cm LA Volume 39.4 cm??? 18 - 58 / 22 - 52 cm??? LA Volume Index 19.3 cm???/m??? 16 - 28 cm???/m??? Ascending Aorta Diameter 3.0 cm DOPPLER AV Peak Velocity 245.4 cm/s AV Peak Gradient 24.1 mmHg AV Mean Velocity 175.7 cm/s AV Mean Gradient 13.9 mmHg AV Velocity Time Integral 54.7 cm AI Peak Velocity 326.4 cm/s AI Peak Gradient 42.6 mmHg AI Pressure Half Time 583.8 ms LVOT Peak Velocity 126.5 cm/s LVOT Peak Gradient 6.4 mmHg LVOT Velocity Time Integral 23.9 cm LVOT Stroke Volume 80.7 cm??? LVOT Stroke Volume Index 39.6 ml/m??? LVOT Cardiac Index 3279.3 cm???/min???m??? AV Area Cont Eq vti 1.5 cm??? AV Area Cont Eq pk 1.7 cm??? MV Peak Velocity 136.9 cm/s MV Peak Gradient 7.5 mmHg MV Mean Velocity 74.2 cm/s MV Mean Gradient 2.8 mmHg MV Velocity Time Integral 47.0 cm Mitral E Point Velocity 116.0 cm/s Mitral A Point Velocity 122.5 cm/s Mitral E to A Ratio 0.9 MV Deceleration Time 217.8 ms MV E' Velocity 7.4 cm/s Mitral E to MV E' Ratio 15.6 TR Peak Velocity 301.3 cm/s TR Peak Gradient 36.3 mmHg Right Ventricular Systolic Press 41.4 mmHg PV Peak Velocity 103.7 cm/s PV Peak Gradient 4.3 mmHg FINDINGS Left Ventricle Normal LV size and wall thickness. Left ventricular ejection fraction is estimated at _60-65 %. Right Ventricle Normal right ventricular size. Right Atrium Normal right atrial size. Left Atrium Normal left atrial size. Mitral Valve Mild posterior mitral annular calcification. No mitral stenosis. No mitral regurgitation. Aortic Valve Mild to moderate AV calcification. Trace AI. AV Mean gradient= 14mmHg. Max gradient= 24mmHg. Tricuspid Valve Structurally normal tricuspid valve. Mild TR. Pulmonic Valve Pulmonic valve not well visualized. No pulmonic regurgitation. Pericardium Normal pericardium. Aorta Normal size aortic root and proximal ascending aorta. CONCLUSIONS Left ventricular ejection fraction 60-65% No mitral regurgitation Mild aortic stenosis Mild tricuspid regurgitation Previewed by: Dr. Roberto cA DO (Electronically Signed) Final Date: 23 April 2023 14:59
[2023-04-23] MEDS: ATORVASTATIN 20 MG TAB PO SCH (21:02)
[2023-04-24] MEDS: SODIUM CHLORIDE 0.9% 1,000 ML IV SCH (00:28)
[2023-04-24 01:34] VITALS: RESP 20
[2023-04-24] MEDS: AZITHROMYCIN 500 MG in SODIUM CHLORIDE 0.9% 250 ML IVPB SCH (02:24)
[2023-04-24 07:24] VITALS: BP 143/65; PULSE 88; TEMP 98.1
[2023-04-24] MEDS: FAMOTIDINE 20 MG/2 ML VIAL IV SCH (08:16)
[2023-04-24] MEDS: HEPARIN SODIUM,PORCINE 5,000 UNIT/ML 1 ML VIAL SQ SCH (08:17)
--- NOTE | 2023-04-24 16:32 | P.PN ---
Subjective Progress Note Date: 04/23/23 Principal diagnosis: Reason for follow-up is fever likely pneumonia Patient is a 83-year-old male with a past medical history significant for urine outflow obstruction in this patient who self catheterize himself, presented to hospital with fever rigors and chills patient did have a negative UA chest x-ray with left-sided effusion possible infiltrate concerning for p ossible pneumonia. On today's evaluation that is 04/23/2023 patient did have a low-grade fever 100.6 last night the patient is afebrile this morning patient is breathing comfortably on room air patient denies any chest pain occasional cough no nausea no vomiting no abdominal pain no diarrhea. Patient patient white count of 11.5, creatinine is 1.35 did have a procalcitonin of 22 Objective - Vital Signs Vital signs: Vital Signs Temp 99.1 F 04/23/23 04:00 Pulse 83 04/23/23 08:00 Resp 18 04/23/23 08:00 BP 133/65 04/23/23 08:00 Pulse Ox 93 L 04/23/23 08:00 FiO2 Intake & Output 04/22/23 04/23/23 04/23/23 18:59 06:59 18:59 Intake Total 1210 Balance 1210 Weight 81.647 kg Intake: IV 910 0.9 910 Intake, IV Titration 300 Amount Azithromycin 500 mg In 250 Sodium Chloride 0.9% 250 ml @ 250 mls/hr IVPB DAILY@0200 [facility] Rx#: [id number] cefTRIAXone 2 gm In 50 Sodium Chloride 0.9% 50 ml @ 100 mls/hr IVPB Q24H [facility] Rx#:[id number] Other: Voiding Method Urinal Self-Catheterization Self-Catheterization # Voids 1 - Exam GENERAL DESCRIPTION: An elderly male lying in bed in no distress RESPIRATORY SYSTEM: Unlabored breathing , decreased breath sounds at bases HEART: S1 S2 regular rate and rhythm , ABDOMEN: Soft , no tenderness EXTREMITIES: No edema feet - Labs CBC & Chem 7: 04/23/23 07:10 04/23/23 07:10 Labs: Abnormal Lab Results - Last 24 Hours (Table) 04/22/23 04/22/23 04/22/23 Range/Units 10:06 10:06 15:23 RBC (4.30-5.90) m/uL Hgb (13.0-17.5) gm/dL Hct (39.0-53.0) % Plt Count (150-450) k/uL Neutrophils # 10.9 H (1.3-7.7) k/uL Lymphocytes # 0.2 L (1.0-4.8) k/uL Sodium (137-145) mmol/L Carbon Dioxide (22-30) mmol/L Calcium (8.4-10.2) mg/dL Troponin I 0.339 H* 0.307 H* (0.000-0.034) ng/mL C-Reactive Protein (<1.0) mg/dL Procalcitonin (0.02-0.09) ng/mL 04/22/23 04/23/23 04/23/23 Range/Units 19:59 07:10 07:10 RBC 3.38 L (4.30-5.90) m/uL Hgb 11.0 L (13.0-17.5) gm/dL Hct 32.5 L (39.0-53.0) % Plt Count 135 L (150-450) k/uL Neutrophils # (1.3-7.7) k/uL Lymphocytes # (1.0-4.8) k/uL Sodium (137-145) mmol/L Carbon Dioxide (22-30) mmol/L Calcium (8.4-10.2) mg/dL Troponin I 0.316 H* (0.000-0.034) ng/mL C-Reactive Protein (<1.0) mg/dL Procalcitonin 22.00 H (0.02-0.09) ng/mL 04/23/23 Range/Units 07:10 RBC (4.30-5.90) m/uL Hgb (13.0-17.5) gm/dL Hct (39.0-53.0) % Plt Count (150-450) k/uL Neutrophils # (1.3-7.7) k/uL Lymphocytes # (1.0-4.8) k/uL Sodium 133 L (137-145) mmol/L Carbon Dioxide 21 L (22-30) mmol/L Calcium 8.2 L (8.4-10.2) mg/dL Troponin I (0.000-0.034) ng/mL C-Reactive Protein 13.2 H (<1.0) mg/dL Procalcitonin (0.02-0.09) ng/mL Microbiology - Last 24 Hours (Table) 04/21/23 21:30 Blood Culture - Preliminary Blood 04/21/23 21:45 Blood Culture - Preliminary Blood Assessment and Plan (1) Fever Status: Acute Code(s): R50.9 - FEVER, UNSPECIFIED SNOMED Code(s): 251305195 (2) Pneumonia Status: Acute Code(s): J18.9 - PNEUMONIA, UNSPECIFIED ORGANISM SNOMED Code(s): 251110499 Plan: 1-patient was in the hospital with sepsis in this patient who did have a fever elevated white count source possible pneumonia versus UTI as the patient did have risk factors for UTI because of his bladder outflow obstruction and need for self-catheterization 2the patient have elevated procalcitonin highly clean suspicious for pneumonia. 3patient has been insisting on going home has been advised to stay in the hospital till at least waiting for the culture to finalize and make sure the patient did have resolution of his fever to the patient did finally agree. 4we will give the patient Rocephin and Zithromax while waiting for the culture to finalize Dictation was produced using [employer] dictation software. please excuse any grammatical, word or spelling errors. Time with Patient: Less than 30
--- NOTE | 2023-04-24 16:36 | P.PN ---
Subjective Progress Note Date: 04/24/23 Principal diagnosis: Reason for follow-up is fever likely pneumonia Patient is a 83-year-old male with a past medical history significant for urine outflow obstruction in this patient who self catheterize himself, presented to hospital with fever rigors and chills patient did have a negative UA chest x-ray with left-sided effusion possible infiltrate concerning for p ossible pneumonia. On today's evaluation that is 04/24/2023 the patient is afebrile today and no fever more than 24 hours, the patient is breathing comfortably patient denies having any chest pain, the patient did have mild cough but no sputum production no nausea no vomiting no abdominal pain no diarrhea feeling better wants to go home. Patient white count normalized to 8.0, creatinine is 1.15 blood culture has been negative so far Objective - Vital Signs Vital signs: Vital Signs Temp 98.1 F 04/24/23 07:16 Pulse 88 04/24/23 08:17 Resp 20 04/24/23 08:17 BP 143/65 04/24/23 07:16 Pulse Ox 91 L 04/24/23 07:16 FiO2 Intake & Output 04/23/23 04/24/23 04/24/23 18:59 06:59 18:59 Intake Total 600 Output Total 900 900 Balance -300 -900 Weight 17 kg 81.647 kg Intake: IV 600 0.9 600 Output: Urine 900 Post Void Residual 900 Other: Voiding Method Self-Catheterization Self-Catheterization Self-Catheterization # Voids 2 1 - Exam GENERAL DESCRIPTION: An elderly male lying in bed in no distress RESPIRATORY SYSTEM: Unlabored breathing , decreased breath sounds at bases HEART: S1 S2 regular rate and rhythm , ABDOMEN: Soft , no tenderness EXTREMITIES: No edema feet - Labs CBC & Chem 7: 04/23/23 07:10 04/23/23 07:10 Labs: Microbiology - Last 24 Hours (Table) 04/21/23 21:30 Blood Culture - Preliminary Blood 04/21/23 21:45 Blood Culture - Preliminary Blood Assessment and Plan (1) Fever Status: Acute Code(s): R50.9 - FEVER, UNSPECIFIED SNOMED Code(s): 945504312 (2) Pneumonia Status: Acute Code(s): J18.9 - PNEUMONIA, UNSPECIFIED ORGANISM SNOMED Code(s): 266807776 Plan: 1-patient was in the hospital with sepsis in this patient who did have a fever elevated white count source possible pneumonia versus UTI as the patient did have risk factors for UTI because of his bladder outflow obstruction and need for self-catheterization 2the patient have elevated procalcitonin highly clean suspicious for pneumonia. 3patient has shown overall improvement but did have resolution of his fever blood culture has been negative and wants to go home we will give him a short course of oral Ceftin on discharge questions concern answered plan of care discussed with admitting team Dictation was produced using [employer] dictation software. please excuse any grammatical, word or spelling errors. Time with Patient: Less than 30
--- NOTE | 2023-04-24 21:31 | P.DS ---
Providers Date of admission: 04/21/23 23:25 Attending physician: Michelle Day Consults: 04/22/23 07:26 Consult Physician Routine Consulting Provider: Meredith Owusu Consult Reason/Comments: high troponin Do you want consulting provider notified?: Yes Consult Physician Urgent Consulting Provider: Raymond Harmon Consult Reason/Comments: fever Do you want consulting provider notified?: Yes Primary care physician: Parish Warren Hospital Course: Diagnoses: Fever mostly secondary to pneumonia suspected. Generalized weakness secondary to the above Sepsis with hypotension secondary to above, with fever and tachypnea present on admission. Result Alcohol use disorder and dependence Mildly elevated troponin, rule out cardiac causes Non-adherence to medical management Hospital course: This is a pleasant 83 years old male with no known past medical history. Presents because he was feeling hot with chills and he had had fever at home. He is mildly tachypneic but denies chest pain dyspnea or coughing. Patient was having some dyspnea and tachypnea on admission has fever. Patient was treated with ceftriaxone and Zithromax, also gentle hydration, patient showed interval improvement. His fever subsided, tachypnea improved and currently his strength is back to normal. Patient was adamant to go home yesterday evening leaving AMA. However patient changed his mind and decides to stay in the hospital Patient today is relaxed and in bed, he remains asymptomatic with no chest pain or dyspnea or coughing. No nausea vomiting. No abdominal pain or change in urine or bowel habits. Fever subsided. No other complaint. Patient's wants to go home today. Patient was cleared for discharge by infectious disease team and cardiology team Insurance Verification Clerk recommended outpatient workup for cardiac disease, patient informed and he agrees Echocardiogram was obtained Showing normal left ventricular ejection fraction 60-65%. No mitral regurgitation. Mild aortic stenosis, mild tricuspid regurgitation Patient will be discharged on Ceftin 7 days per my discussion with Dr. Harmon to clear him for discharge today. Problems and management plan were discussed with the patient and he verbalized understanding and acceptance Patient was found stable and can be discharged home in guarded prognosis however he needs follow-up as an outpatient. Patient was instructed to follow up with PCP Dr. Warren within one week and patient agrees Patient was instructed to follow up with Dr. Harmon in one week and he agrees Patient also was instructed to follow up with film cleaner Dr. Guerra in one week and he agrees Physical exam Gen: patient is a AAOx3, no distress CVS: S1-S2, RRR, no murmur Lungs: B/L CTA, no wheezing Abdomen: soft, no distention, no tenderness, positive bowel sounds Extremity: no leg edema or induration Time spent more than 35 minutes Patient Condition at Discharge: Fair Plan - Discharge Summary Discharge Rx Participant: Yes New Discharge Prescriptions: New cefUROXime axetiL [Ceftin] 500 mg PO BID 7 Days #14 tab Continue Lutein 20 mg PO HS Losartan Potassium 50 mg PO HS Atorvastatin [Lipitor] 20 mg PO HS Discharge Medication List Atorvastatin [Lipitor] 20 mg PO HS 04/21/23 [History] Losartan Potassium 50 mg PO HS 04/21/23 [History] Lutein 20 mg PO HS 04/21/23 [History] cefUROXime axetiL [Ceftin] 500 mg PO BID 7 Days #14 tab 04/24/23 [Rx] Follow up Appointment(s)/Referral(s): Parish Warren DO [Primary Care Provider] - 05/04/23 11:20 am Raymond Harmon MD [STAFF PHYSICIAN] - 1 Week (office closed at time of discharge Please call to schedule appointment) Will Guerra MD [STAFF PHYSICIAN] - 05/07/23 4:00 pm Activity/Diet/Wound Care/Special Instructions: heart healthy diet activity is restricted till you see your doctor Discharge Disposition: HOME WITH HOME HEALTH SERVICES
== END 2023-04-24 13:00 | disposition home health service (06) | DRG 871 ==
LOC: EC 20:30 → 5NMEDONC 23:25 → 4SSUR 04-22 01:29 → 3SCARD 04-22 03:22 → 4SSUR 04-23 15:08
PROVIDERS: ADMIT Hospitalist; ATTEND Hospitalist
DX: A41.9 Sepsis, unspecified organism (principal); J18.9 Pneumonia, unspecified organism; N13.8 Other obstructive and reflux uropathy; E78.5 Hyperlipidemia, unspecified; I95.9 Hypotension, unspecified; R09.02 Hypoxemia; F10.20 Alcohol dependence, uncomplicated; R01.1 Cardiac murmur, unspecified; R79.89 Other specified abnormal findings of blood chemistry; I10 Essential (primary) hypertension; Z53.29 Procedure and treatment not carried out because of patient's decision for other reasons; Z79.899 Other long term (current) drug therapy; Z11.52 Encounter for screening for COVID-19
CPT/HCPCS: 36415; 71045; 76705; 80048; 80053; 81001; 83605; 83735; 84100; 84145; 84484; 85025; 85027; 86140; 87040; 87449; 87635; 87636; 93005; 93306; 96361; 96365; 96366; 96367; 96372; 96375; 96376; 99285

== ENCOUNTER → 2024-01-05 | Outpatient (CLI) | payer MEDICARE | END | disposition home or self-care (01) | LOC: LABWHC1 11:08 | PROVIDERS: ATTEND Orthopaedic Surgery | DX: Z01.812 Encounter for preprocedural laboratory examination (principal); M16.12 Unilateral primary osteoarthritis, left hip; Z22.322 Carrier or suspected carrier of Methicillin resistant Staphylococcus aureus | CPT/HCPCS: 87070 ==

== ENCOUNTER 2024-02-01 05:47 | Day surgery (SDC) | payer MEDICARE ==
--- NOTE | 2024-01-31 22:34 | HP ---
HISTORY AND PHYSICAL DATE OF SURGERY: 02/01/2024. HISTORY OF PRESENT ILLNESS: Td Hudson 84-year-old gentleman seen with symptomatic left hip osteoarthritis. We discussed options regarding treatment. He elected to proceed with left total hip arthroplasty via direct anterior approach. Consents obtained. Medical clearance was provided by office. PAST MEDICAL HISTORY: Hypertension, hyperlipidemia. PAST SURGICAL HISTORY: Noncontributory. DAILY MEDICATIONS: 1. Atorvastatin. 2. Losartan. 3. Lutein. ALLERGIES: None reported. SOCIAL HISTORY: Denies tobacco use. PHYSICAL EVALUATION OF THE LEFT HIP: He has very limited range of motion, severe pain. Positive hip impingement sign. Straight-leg raise negative. Distal neurovascular exam intact. IMAGING: Left hip radiographs reveal severe osteoarthritic changes. IMPRESSION: 1. Left hip osteoarthritis. 2. Hypertension. 3. Hyperlipidemia. PLAN: Direct anterior approach, left total hip arthroplasty. MMODL / IJN: [id number] /
[~2024-02-01 05:47] MED LIST: TRANEXAMIC 1,000 MG/100ML-NACL 1,000 MG in SALINE 1 100ML.BAG IVPB PRN
[2024-02-01] MEDS ORDERED: ONDANSETRON 4 MG/2 ML VIAL IVP PRN (06:15)
[2024-02-01] MEDS ORDERED: LIDOCAINE 1% (10MG/ML) FOR IV START INTRADERMA PRN (06:15)
[2024-02-01] MEDS: IV FLUID CONTINUATION 1,000 ML IV ONE (06:52)
[2024-02-01] MEDS: LACTATED RINGERS 1,000 ML IV SCH (06:53)
[2024-02-01] MEDS: ONDANSETRON 4 MG/2 ML VIAL IVP ONE (06:58)
[2024-02-01] MEDS: ACETAMINOPHEN TAB 500 MG TAB PO PRN (06:59)
[2024-02-01] MEDS: MELOXICAM 7.5 MG TAB PO PRN (06:59)
[2024-02-01] MEDS: DEXAMETHASONE SOD PHOSPHATE 4 MG/ML 1 ML VIAL IV ONE (06:59)
[2024-02-01] MEDS: MIDAZOLAM 2 MG/2 ML VIAL IV ONE (07:11)
[2024-02-01] MEDS ORDERED: PROPOFOL 10 MG/ML 20 ML VIAL IV ONE (07:29)
[2024-02-01] MEDS ORDERED: MIDAZOLAM 2 MG/2 ML VIAL ONE (07:29)
[2024-02-01] MEDS ORDERED: TRANEXAMIC 1,000 MG/100ML-NACL PREMIX BAG ONE (07:29)
[2024-02-01] MEDS ORDERED: fentaNYL (PF) 50 MCG/ML 2 ML AMP ONE (07:29)
[2024-02-01] MEDS ORDERED: ePHEDrine 50 MG/ML 1 ML VIAL ONE (07:29)
[2024-02-01] MEDS ORDERED: ROPIVACAINE 5 MG/ML 30 ML VIAL ONE (07:29)
[2024-02-01] MEDS ORDERED: PHENYLEPHRINE 10 MG/ML VIAL ONE (07:29)
[2024-02-01] MEDS ORDERED: DEXAMETHASONE SOD PHOSPHATE 4 MG/ML 1 ML VIAL ONE (07:29)
[2024-02-01] MEDS: ceFAZolin 1,000 MG in SODIUM CHLORIDE 0.9% 1,000 ML IRRIGATION ONE (08:06)
[2024-02-01] MEDS: LACTATED RINGERS 1,000 ML IV ONE (08:56)
[2024-02-01] MEDS ORDERED: HYDROmorphone 0.5 MG/0.5 ML SYRINGE IVP PRN ×3 (09:03)
[2024-02-01] MEDS ORDERED: NALOXONE 0.4 MG/ML 1 ML VIAL IV PRN (09:03)
[2024-02-01] MEDS ORDERED: HYDROcodone/APAP 7.5-325MG 1 EACH TAB PO PRN (09:03)
--- NOTE | 2024-02-01 09:03 | P.OP ---
Date of Procedure: 02/01/24 Preoperative Diagnosis: Left hip osteoarthritis Postoperative Diagnosis: Left hip osteoarthritis Procedure(s) Performed: Direct anterior left total hip arthroplasty Implants: 1. DePuy Corail KLA size 16 high offset press-fit collared femoral stem 2. DePuy Calder 58 mm press-fit multihole acetabular shell 3. DePuy Calder neutral polyethylene acetabular liner 36 mm ID 58 mm OD 4. Biolox delta ceramic femoral head +1.5 36 mm Anesthesia: regional (Erector spinae block), spinal Surgeon: Ryan Carranza Escapement Matcher #1: Rudy Hadley Estimated Blood Loss (ml): 45 Pathology: none sent Condition: stable Disposition: PACU Indications for Procedure: 84-year-old patient seen with symptomatic left hip osteoarthritis. After having treatment options discussed, he elected to proceed with direct anterior left total hip arthroplasty. Operative Findings: See description of procedure Description of Procedure: The patient was taken to the operative suite. Patient underwent a spinal anesthetic by the department of anesthesia. Patient was then transferred to the [place] table. Patient was given preoperative IV antibiotics and TXA. Both lower extremities were placed in standard leg spars. The hip was then prepped and draped in the normal sterile orthopedic fashion. A standard anterior incision was made beginning 3 cm lateral and 1 cm distal to the ASIS extending 10 cm. Dissection was then carried down through the subcutaneous soft tissues down to the fascia overlying the tensor fascia kareem. An incision was now made through the fascia. Careful dissection was taken down exposing the tensor fascia kareem muscle. A Cobra retractor was now placed along the medial femoral neck and a second one along the lateral femoral neck. The venous circumflex vessels were now identified, cauterized and clipped. We identified the anterior hip capsule. An incision was made through the hip capsule along the lateral border. I performed a partial anterior capsulectomy. Retractors were now placed around the femoral neck itself. A femoral neck cut was now made with a sagittal saw. It was completed with an osteotome at the lateral neck area. The femoral head was now removed without difficulty. The extremity was now rotated to 60 of external rotation. It was locked in position. Residual labrum was now debrided out. Serial reaming was performed of the acetabulum while Glynn ARREGUIN assisted holding an anterior retractor for exposure. Once we reached the appropriate size and a trial was position and fit nicely. The appropriate size was now chosen opened and made available. It was introduced into the acetabulum without difficulty. The C-arm/fluoroscopy was now brought into the operative field. We made sure we had a true AP pelvic view. We now under direct C- arm/fluoroscopy introduced into the acetabular component with appropriate version and inclination. I held the cup in appropriate position well Glynn ARREGUIN used a mallet to seat the acetabular component. I noted the component now to be well seated and stable. Acetabular cup introduce her was removed. The C-arm was pulled back. An appropriate liner was introduced and clicked into position. It was felt to be stable. At this point retractors were removed. The extremity was now placed into 140 external rotation with no traction. The leg was now dropped to the ground and adducted. Appropriate retractors were now positioned along the proximal femur. We also placed our femoral look into position. Additional capsular releasing was performed to gain access to the proximal femur. We now used a box osteotome. A canal finder was now utilized. Serial broaching was now performed with the assistance of Glynn ARREGUIN tapping the broaches down with a mallet while held the broach in appropriate rotation and position. This was done until we reached the appropriate size with good overall rotational stability. Appropriate calcar planing was performed. A trial head/neck was placed into position. The hip was now reduced. The C- arm/fluoroscopy was brought back into the operative field. I obtained an AP pelvis which demonstrated adequate leg length alignment. The trial components appeared adequately positioned and sized. The C-arm/fluoroscopy was pulled back. Retractors were repositioned and the hip was dislocated. The leg was again taken down to the ground and adducted. Appropriate retractors were repositioned as well as the femoral hook. All trial components were removed. The femoral implant was opened along with the femoral head. The femoral implant was introduced on the appropriate handle into our pre-broached area. I held the component position well Glynn ARREGUIN used a mallet to seat the femoral component. The femoral component was now noted to be well seated and stable.. The femoral head was introduced with good positioning and fixation noted. Retractors were now removed. The hip was now reduced. There appeared be good positioning of the hip confirmed on intraoperative fluoroscopy. Spot films were obtained to document this. A second gram of TXA was given. Bipolar cautery had been utilized intermittently through the procedure for hemostasis. The wound was irrigated copiously with pulse lavage mechanical irrigation. The fascia was repaired with Vicryl suture. The subcutaneous soft tissues were repaired in layers with Vicryl suture. The skin was approximated with pernio/Dermabond. Sterile dressings were applied. Patient was then awakened, transferred to a bed and taken to recovery in stable condition. Glynn ARREGUIN assisted with the complex procedure.
--- NOTE | 2024-02-01 09:15 | XR ---
EXAMINATION TYPE: XR Hip Limited LT, FL guidance operating room DATE OF EXAM: 02/01/2024 CLINICAL HISTORY: 84-year-old male M16.12 OA LEFT HIP TECHNIQUE: Fluoroscopy. COMPARISON: None. FINDINGS: Fluoroscopic guidance was provided during placement of left total hip arthroplasty. Serial fluoroscopic images showing placement of the acetabular cup and femoral stem hardware in gross anato pal alignment. No periprosthetic fracture seen. A total of 9 seconds of fluoroscopic time was utiliz ed during the procedure and two spot images are acquired. DAP: .5025 Gycm2 IMPRESSION: Fluoroscopy during left hip total arthroplasty. The orthopedic hardware appears intact wi th gross anatomic alignment. [facility], , 02/01/2024 9:13 AM
[2024-02-01] MEDS: HYDROmorphone 0.5 MG/0.5 ML SYRINGE IVP PRN (10:03)
[2024-02-01] MEDS: MULTIVITAMINS, THERA 1 EACH TAB PO SCH (16:28)
[2024-02-01] MEDS: SODIUM CHLORIDE 0.9% 1,000 ML IV SCH (20:07)
[2024-02-01] MEDS: SENNOSIDES-DOCUSATE SODIUM 1 EACH TAB PO SCH (20:56)
[2024-02-01] MEDS: ASPIRIN 325 MG TAB PO SCH (20:56)
[2024-02-02] MEDS: HYDROcodone/APAP 5-325MG 1 EACH TAB PO PRN (06:47)
[2024-02-02] MEDS: FAMOTIDINE 20 MG TAB PO SCH (07:52)
[2024-02-02 08:38] LABS: Basophils # (A) 0.01 X 10*3/uL (0.00-0.10); Basophils % (A) 0.1 %; Eosinophils # (A) 0 X 10*3/uL (0.04-0.35); Eosinophils % (A) 0 %; HCT 33.4 % (39.6-50.0); HGB 11.2 g/dL (13.0-17.0); Lymphocytes # (A) 0.91 X 10*3/uL (0.90-5.00); Lymphocytes % (A) 8.4 %; MCH 30.7 pg (27.0-32.0); MCHC 33.5 g/dL (32.0-37.0); MCV 91.5 FL (80.0-97.0); Mean Platelet Volume 9.7 FL (9.5-12.2); Monocytes # (A) 1.31 X 10*3/uL (0.20-1.00); Monocytes % (A) 12.1 %; NRBC Per 100 WBC 0 X 10*3/uL (0.00-0.01); Neutrophils # (A) 8.53 X 10*3/uL (1.80-7.70); Neutrophils % (A) 78.9 %; Platelet Count 233 X 10*3/uL (140-440); RBC 3.65 X 10*6/uL (4.40-5.60); RDW 13.1 % (11.5-14.5); WBC 10.81 X 10*3/uL (4.50-10.00)
[2024-02-02 08:44] VITALS: BP 164/78; PULSE 75; RESP 17; TEMP 98
--- NOTE | 2024-02-02 10:10 | P.PN ---
Subjective Progress Note Date: 02/02/24 Principal diagnosis: Status post direct anterior left total hip arthroplasty Patient evaluated at bedside, they are doing very well today. He ambulated well with therapy. Denies headaches, lightheadedness, chest pain or shortness of breath. Pain is well-controlled. Objective - Vital Signs Vital signs: Vital Signs Temp 98.0 F 02/02/24 07:00 Pulse 75 02/02/24 08:00 Resp 17 02/02/24 08:00 BP 164/78 02/02/24 07:00 Pulse Ox 94 L 02/02/24 07:00 FiO2 Intake & Output 02/01/24 02/02/24 02/02/24 18:59 06:59 18:59 Intake Total 1101 100 Output Total 50 Balance 1051 100 Weight 84.9 kg Intake: IV 851 Oral 250 100 Output: Estimated Blood Loss 50 Other: Voiding Method Self-Catheterization Self-Catheterization # Voids 1 1 - Exam Left lower extremity: Incision is clean, dry, and intact. The foam dressing is in good condition. There is minimal soft tissue swelling and ecchymosis surrounding the medial and lateral aspects of the incision. Calf is soft, no tenderness with palpation. Plantar flexion, dorsiflexion, EHL, FHL are intact. Sensory exam to light touch throughout the extremity is intact, dorsal pedis pulses 2+. - Labs CBC & Chem 7: 02/02/24 03:47 Labs: Abnormal Lab Results - Last 24 Hours (Table) 02/02/24 Range/Units 03:47 WBC 10.81 H (4.50-10.00) X 10*3/uL RBC 3.65 L (4.40-5.60) X 10*6/uL Hgb 11.2 L (13.0-17.0) g/dL Hct 33.4 L (39.6-50.0) % Immature Gran # 0.05 H (0.00-0.04) X 10*3/uL Neutrophils # 8.53 H (1.80-7.70) X 10*3/uL Monocytes # 1.31 H (0.20-1.00) X 10*3/uL Eosinophils # 0 L (0.04-0.35) X 10*3/uL Assessment and Plan Assessment: Postoperative day #1 status post direct anterior left total hip arthroplasty Plan: Pain control, plan for discharge home on oral medication. Senna will be utilized for stool softener DVT prophylaxis, aspirin 81 mg twice a day for 30 days Wound care instructions discussed, this to include showering instructions and use of bandage Home PT/nursing after discharge Medical recommendations appreciated Discharge planning: Patient stable for discharge home today
--- NOTE | 2024-02-02 10:13 | P.DS ---
Providers Date of admission: 02/01/2024 Expected date of discharge: 02/02/24 Attending physician: Ryan Carranza Consults: 02/01/24 09:03 Consult Physician Routine Consulting Provider: Parish Warren Reason/Comments: Medical management Do you want consulting provider notified?: Yes Primary care physician: Parish Warren Hospital Course: Date of admission: 02/01/2024 Date of discharge: 02/02/2024 Admission diagnosis: Status post direct anterior left total hip arthroplasty Discharge diagnosis: Same Attending physician: Dr. Carranza Surgical procedures: Direct anterior left total hip arthroplasty Brief history: Patient is a 84-year-old male with a history of progressive primary left hip osteoarthritis. At this point patient has failed conservative treatment measures and has opted to proceed with a elective direct anterior left total hip arthroplasty. Hospital course: Details of patient's surgery can be found in operative report. Patient tolerated the procedure well and was subsequently transported to orthopedic floor. Patient's orthopeidc and medical care was provided daily. Patient had daily laboratory tests performed for evaluation of overall blood co unts. Patient had daily physical therapy to include strengthening range of motion as well as education with walker ambulation. Patient was treated with aspirin for their postoperative DVT prophylaxis during their inpatient stay. Patient was noted to have a relatively uneventful postoperative course. Patient reported satisfactory pain control with oral pain medications by postoperative day 0. Patient showed satisfactory progress with physical therapy. Patient moved steadily through the program and had no difficulty meeting the goals by postoperative day 1. Given patient's otherwise satisfactory course and having met physical therapy goals, plan is to discharge patient home on postoperative day 1. Discharge condition/disposition: Patient will be discharged home in stable condition. Discharge medications: Instructions are given on resumption of patient's normal daily medications per primary care recommendation, in addition patient will be prescribed [place] 5 mg / 325 mg, senna S, aspirin 81 mg. Discharge instructions: 1. Wound care and infection precautions, keep incision dry and covered while showering, no lotions, creams, moisturizers. No soaking, tubs, pools, hottubs. Do not scrub over the incision. 2. Weight-bear as tolerated with walker / cane until follow-up. 3. Ice and elevate when necessary. Do not exceed 20 minutes per hour with ice pack. 4. Utilize compression sleeve until seen at first follow up appointment. 5. Visiting nursing care. 6. Home physical therapy. 7. Pain meds and anticoagulants per prescription. 8. Pain medication has potential to cause constipation. Increase oral fluid and fiber intake. Contact primary care provider if you have not had a bowel movement within 48 hours after discharge 9. No anti-inflammatory medication until discussed at first post operative visit, this including Motrin, Aleve, Mobic, Diclofenac. 10. Follow up in office at 2 weeks postop with Glynn Hadley PA-C/Rolando Dumont 11. Follow up with your primary care doctor 7-10 days after discharge. 12. Contact [facility] with any questions, . Procedures: Direct anterior left total hip arthroplasty Patient Condition at Discharge: Good Plan - Discharge Summary Discharge Rx Participant: Yes New Discharge Prescriptions: New Aspirin [Adult Low Dose Aspirin EC] 81 mg PO BID #60 tab Sennosides/Docusate Sodium [Senna-S 8.6-50 mg Tablet] 2 each PO DAILY PRN #30 tablet PRN Reason: Constipation HYDROcodone/APAP 5-325MG [[place] 5-325] 1 tab PO Q6HR PRN #28 tab PRN Reason: Pain No Action Lutein 20 mg PO HS Losartan Potassium 50 mg PO HS Atorvastatin [Lipitor] 20 mg PO HS Discharge Medication List Atorvastatin [Lipitor] 20 mg PO HS 04/21/23 [History] Losartan Potassium 50 mg PO HS 04/21/23 [History] Lutein 20 mg PO HS 04/21/23 [History] Aspirin [Adult Low Dose Aspirin EC] 81 mg PO BID #60 tab 02/02/24 [Rx] HYDROcodone/APAP 5-325MG [[place] 5-325] 1 tab PO Q6HR PRN #28 tab 02/02/24 [Rx] Sennosides/Docusate Sodium [Senna-S 8.6-50 mg Tablet] 2 each PO DAILY PRN #30 tablet 02/02/24 [Rx] Follow up Appointment(s)/Referral(s): Rudy Hadley PAC [PHYSICIAN EXAM PROCTOR] - 02/17/24 3:40 pm Activity/Diet/Wound Care/Special Instructions: Orthopedic Discharge Instructions: 1. Wound care and infection precautions, keep incision dry and covered while showering, no lotions, creams, moisturizers. No soaking, pools, hot tubs. Do not scrub over incision. 2. Weight-bear as tolerated with walker / cane until follow-up. 3. Ice and elevate when necessary. Do not exceed 20 minutes per hour with ice pack. 4. Utilize compression sleeve until seen at first follow up appointment. 5. Pain meds and anticoagulants per prescription. 6. Pain medication has potential to cause constipation. Increase oral fluid and fiber intake. Contact primary care provider if you have not had a bowel movement within 48 hours after discharge. 7. No anti-inflammatory medication until discussed at first post operative visit, this including Motrin, Aleve, Mobic, Diclofenac. 8. Follow up in office at 2 weeks postop with Glynn Hadley PA-C/Rolando Rivas PA-C 9. Follow up with your primary care doctor 7-10 days after discharge. 10. Contact [facility] with any questions, . Wound care instructions: 1. Okay to remove surgical dressing as of 02/10/2024 2. Okay to shower directly over the incision after removal of dressing Discharge Disposition: HOME WITH HOME HEALTH SERVICES
--- NOTE | 2024-02-08 15:37 | P.ANPRN ---
Procedure Note - Anesthesia - Nerve Block Performed Left Indra Single Time Out Performed: Yes Date of Procedure: 02/01/24 Procedure Start Time: 07:11 Procedure Stop Time: 07:17 Location of Patient: PreOp Indication: Acute Post-Operative Pain, Requested by Surgeon Sedation Type: Sedate with meaningful contact maintained Preparation: Sterile Prep Position: Supine Needle Types: Pajunk Needle Gauge: 21 Ultrasound used to visualize needle placement: Yes Ultrasound used to observe medication spread: Yes Blood Aspirated: No Pain Paresthesia on Injection Noted: No Resistance on Injection: Normal Image Stored and Saved: Yes Events: Uneventful and Well Tolerated (Ropivacaine 0.5% 20 cc plus dexamethasone 4 mg)
== END 2024-02-02 11:50 | disposition home health service (06) ==
LOC: OR 05:47 → 4SSUR 12:00 → OR 02-02 11:50
PROVIDERS: ATTEND Orthopaedic Surgery
DX: M16.12 Unilateral primary osteoarthritis, left hip
CPT/HCPCS: 64447; 73501; 85025; 86850; 86900; 86901